=== PATIENT | male | born 1940 | race American Indian/Alaskan Native ===

== ENCOUNTER 2018-07-15 11:59 | Emergency (ER) | payer MEDICARE ==
--- NOTE | 2018-07-15 12:33 | Emergency Department Report ---
HPI - General Time Seen by Provider: 07/15/18 12:22 - [facility] HPI: Room 24 The patient is 78-year-old male presenting with chief complaint of fall from bed. The patient has a history of dementia who was sent from an assisted living facility for evaluation after a fall. Per EMS the patient was sitting on the edge of the bed initially and then the nurse found him on the floor. Patient has a hematoma to the back of the head. Patient complains of pain to the head neck back and right hip. It is uncertain if there was loss of consciousness Location: [See above] Duration: Just prior to arrival Quality: Pain Severity: Moderate Modifying factors: [see above] Context: [see above] Mode of transportation: [not driving] ED Past Medical Hx - Past Medical History Hx Hypertension: Yes Hx Diabetes: Yes Hx Dementia: Yes Additional medical history: Hypercholesterolemia - Surgical History Past Surgical History?: No - Family History Family history: no significant - Social History Smoking Status: Never Smoker Substance Use Type: None ED Review of Systems ROS: Stated complaint: FALL Other details as noted in HPI Constitutional: no symptoms reported Eyes: denies: eye pain ENT: denies: throat pain Respiratory: no symptoms reported Cardiovascular: denies: chest pain Endocrine: no symptoms reported Gastrointestinal: denies: abdominal pain Genitourinary: denies: dysuria Musculoskeletal: back pain, myalgia Neurological: headache Physical Exam - Physical Exam Physical Exam: GENERAL: The patient is well-developed well-nourished male lying on stretcher with cervical collar in place not appear to be in acute distress. [] HEENT: Normocephalic. Scalp hematoma. Extraocular motions are intact. Patient has moist mucous membranes. NECK: Supple. Cervical collar in place. Mild discomfort to palpation of the axial cervical spine CHEST/LUNGS: Clear to auscultation. There is no respiratory distress noted. HEART/CARDIOVASCULAR: Regular. There is no tachycardia. There is no gallop rub or murmur. ABDOMEN: Abdomen is soft, nontender. Patient has normal bowel sounds. There is no abdominal distention. SKIN: There is no rash. There is no edema. There is no diaphoresis. NEURO: The patient is awake and alert but pleasantly demented. The patient is cooperative. The patient has no focal neurologic deficits. The patient has normal speech. Cranial nerves II through XII grossly intact, insurance account representative equal bilaterally. Moves all extremities MUSCULOSKELETAL: There is no deformity. There is no limitation range of motion. ED Medical Decision Making - Radiology Data Radiology results: report reviewed (right hip x-ray, CT head, CT cervical spine, thoracic spine x-ray), image reviewed (CT head, CT cervical spine, right hip x- ray, thoracic spine x-ray, lumbar spine x-ray) interpreted by me: Right hip x-ray-no acute fracture Thoracic spine x-ray-no acute fracture Lumbar spine x-ray-no acute fracture Findings [address] [address] XRay Report Signed Patient: JULITA ROBBINS MR#: [id number] : 1940 Acct:[id number] Age/Sex: 78 / M ADM Date: 07/15/18 Loc: ED Attending Dr: Ordering Physician: AIDA YAN MD Date of Service: 07/15/18 Procedure(s): XR hip 2-3V RT Accession Number(s): [id number] cc: AIDA YAN MD Fluoro Time In Minutes: RIGHT HIP RADIOGRAPHS INDICATION: Pain after fall. COMPARISON: None similar at this institution. FINDINGS: AP pelvic and frog-leg projection of the right hip demonstrate normal femoral head contours, well located within the acetabula. Few hip degenerative changes as acetabular spurring and subtle subchondral cysts may though be present. Intact remainder pelvic articulation. Moderate lower lumbar degenerative osteophytes. Possible osteopenia. Atherosclerotic vascular calcifications. Nonobstructive bowel gas pattern. CONCLUSION: No acute right hip radiographic abnormality with degenerative changes noted, as described. Thank you for the opportunity to participate in this patient's care. Transcribed By: RS Dictated By: MEAGAN NUGENT MD Electronically Authenticated By: MEAGAN NUGENT MD Signed Date/Time: 07/15/18 1343 DD/ 1340 TD/TT: 07/15/[address] [address] Cat Scan Report Signed Patient: JULITA ROBBINS MR#: [id number] : 1940 Acct:[id number] Age/Sex: 78 / M ADM Date: 07/15/18 Loc: ED Attending Dr: Ordering Physician: AIDA YAN MD Date of Service: 07/15/18 Procedure(s): CT cervical spine wo con Accession Number(s): [id number] cc: AIDA YAN MD CT CERVICAL SPINE WITHOUT CONTRAST INDICATION: Pain after fall. COMPARISON: None similar. FINDINGS: Noncontrast axial, sagittal and coronal CT reconstructions through the cervical spine demonstrate numerous radiopaque dental materials, creating streak artifact. Exam also limited due to motion. Chronic right maxillary sinus mucoperiosteal thickening partially imaged. Left external auditory canal debris may also be directly visualized. Left vertebral artery atherosclerotic calcifications. Assessment of the spinal canal compromised from C6 inferiorly due to shoulder soft tissue artifact. Intact craniocervical articulation however with intact dens, anterior and posterior arches of C1, prevertebral soft tissues and airway. Extensive multilevel bridging osteophytes noted, most prominent anteriorly and posteriorly at C2-C3. Diffuse, somewhat confluent/flowing osteophytes also noted, more so anteriorly as on sagittal image 121, possibly DISH or ankylosing spondylitis. Thyroid not well visualized. Lung apices not imaged. On the obtained axial images: C2-C3 demonstrates central to left paracentral prominent disc bulge/osteophyte complex with possible ventral hemicord flattening and effacement as on axial series 3, image 88, amongst others. Severe asymmetric left facet hypertrophy also noted. C3-C4 demonstrates mild diffuse disc bulge/osteophyte complex, greatest left paracentral, axial image 98. C4-C5 and C5-C6 demonstrate mild posterior osteophytosis. C6-C7 demonstrates moderate to severe bilateral facet hypertrophy, axial image 130. C7-T1 also demonstrates moderate to severe facet hypertrophic changes, left more than right as on axial image 136. CONCLUSION: 1. No definite acute cervical spine CT abnormality with extensive multilevel degenerative changes noted, possibly DISH or ankylosing spondylitis, amongst others, in an appropriate setting. Please correlate. 2. Various other findings, as above. Thank you for the opportunity to participate in this patient's care. Transcribed By: RS Dictated By: MEAGAN NUGENT MD Electronically Authenticated By: MEAGAN NUGENT MD Signed Date/Time: 07/15/18 1511 DD/ 1501 TD/TT: 07/15/18 1511 - Differential Diagnosis closed head injury, ICH, cervical fracture, cervical strain, hip fracture Critical care attestation.: If time is entered above; I have spent that time in minutes in the direct care of this critically ill patient, excluding procedure time. ED Disposition Clinical Impression: Closed head injury, Contusion of right hip Disposition: DC/TX-70 ANOTHER TYPE HLTHCARE Is pt being admited?: No Does the pt Need Aspirin: No Condition: Stable Additional Instructions: Return to the emergency department immediately should you develop worsening symptoms, fever, inability to tolerate food or liquid or any other concerns. Referrals: PRIMARY CAREMD [Primary Care Provider] - 3-5 Days Time of Disposition: 15:47
--- NOTE | 2018-07-15 13:46 | XRay Report ---
RIGHT HIP RADIOGRAPHS INDICATION: Pain after fall. COMPARISON: None similar at this institution. FINDINGS: AP pelvic and frog-leg projection of the right hip demonstrate normal femoral head contours, well located within the acetabula. Few hip degenerative changes as acetabular spurring and subtle subchondral cysts may though be present. Intact remainder pelvic articulation. Moderate lower lumbar degenerative osteophytes. Possible osteopenia. Atherosclerotic vascular calcifications. Nonobstructive bowel gas pattern. CONCLUSION: No acute right hip radiographic abnormality with degenerative changes noted, as described. Thank you for the opportunity to participate in this patient's care.
--- NOTE | 2018-07-15 13:53 | XRay Report ---
THORACIC SPINE RADIOGRAPHS INDICATION: Pain after fall. COMPARISON: None similar. FINDINGS: AP and crosstable lateral views demonstrate grossly preserved vertebral body stature, alignment and disc heights. DISH/anterior longitudinal ligament ossification not excluded. Prominent lumbar spine degenerative osteophytes also seen. Possible osteopenia. Clear imaged lungs. Normal heart size. Mild aortic knob calcifications. CONCLUSION: No acute thoracic spine radiographic abnormality with thoracolumbar degenerative changes - possible DISH or ankylosing spondylitis in an appropriate setting. Please correlate. Thank you for the opportunity to participate in this patient's care.
--- NOTE | 2018-07-15 14:20 | Cat Scan Report ---
CT HEAD WITHOUT CONTRAST INDICATION: Pain after fall. COMPARISON: None similar. FINDINGS: Noncontrast head CT demonstrates symmetric, age-appropriate ventricles and sulci. Extensive periventricular and white matter hypodense probable small vessel ischemic disease. Though difficult to accurately detect in this setting, no definite acute infarct, hemorrhage, mass effect or midline shift identified. No abnormal extra axial fluid collections. Grossly normal posterior fossa with preserved basilar cisterns. Left cataract surgery. Completely opacified right maxillary sinus with some density also extending into the right nasal passage with evidence of prior sinus surgery/antrectomy. Mild right ethmoid and bilateral frontal sinus mucosal thickening may also be noted. Clear remainder imaged paranasal sinuses and temporal bone/mastoid air cells. Extensive atherosclerotic ICA calcifications. Mild left vertebral artery calcifications as well. Left external auditory canal debris may be directly visualized. Normal calvarium. Mild parietal scalp soft tissue swelling/hematoma noted posteriorly about the midline as on axial image 44. Numerous radiopaque dental material. Cervical spondylosis. CONCLUSION: 1. No acute intracranial CT abnormality with mild posterior scalp swelling/hematoma incidentally noted, as described. 2. Age-appropriate atrophy with extensive microvascular changes. 3. Severe right maxillary sinus chronic mucoperiosteal thickening in this patient with prior sinus surgery. 4. Few other findings, including extensive atherosclerotic vascular calcifications. Thank you for the opportunity to participate in this patient's care.
--- NOTE | 2018-07-15 15:14 | Cat Scan Report ---
CT CERVICAL SPINE WITHOUT CONTRAST INDICATION: Pain after fall. COMPARISON: None similar. FINDINGS: Noncontrast axial, sagittal and coronal CT reconstructions through the cervical spine demonstrate numerous radiopaque dental materials, creating streak artifact. Exam also limited due to motion. Chronic right maxillary sinus mucoperiosteal thickening partially imaged. Left external auditory canal debris may also be directly visualized. Left vertebral artery atherosclerotic calcifications. Assessment of the spinal canal compromised from C6 inferiorly due to shoulder soft tissue artifact. Intact craniocervical articulation however with intact dens, anterior and posterior arches of C1, prevertebral soft tissues and airway. Extensive multilevel bridging osteophytes noted, most prominent anteriorly and posteriorly at C2-C3. Diffuse, somewhat confluent/flowing osteophytes also noted, more so anteriorly as on sagittal image 121, possibly DISH or ankylosing spondylitis. Thyroid not well visualized. Lung apices not imaged. On the obtained axial images: C2-C3 demonstrates central to left paracentral prominent disc bulge/osteophyte complex with possible ventral hemicord flattening and effacement as on axial series 3, image 88, amongst others. Severe asymmetric left facet hypertrophy also noted. C3-C4 demonstrates mild diffuse disc bulge/osteophyte complex, greatest left paracentral, axial image 98. C4-C5 and C5-C6 demonstrate mild posterior osteophytosis. C6-C7 demonstrates moderate to severe bilateral facet hypertrophy, axial image 130. C7-T1 also demonstrates moderate to severe facet hypertrophic changes, left more than right as on axial image 136. CONCLUSION: 1. No definite acute cervical spine CT abnormality with extensive multilevel degenerative changes noted, possibly DISH or ankylosing spondylitis, amongst others, in an appropriate setting. Please correlate. 2. Various other findings, as above. Thank you for the opportunity to participate in this patient's care.
--- NOTE | 2018-07-15 15:50 | XRay Report ---
LUMBAR SPINE RADIOGRAPHS INDICATION: Pain after fall. COMPARISON: None similar. FINDINGS: AP and crosstable lateral lumbar spine radiographs demonstrate diffuse degenerative osteophytes, most prominent inferiorly. Normal vertebral body stature and alignment. Possible osteopenia. Fairly preserved disc heights. Mild atherosclerotic aortoiliac calcifications. Intact SI joints. Nonobstructive bowel gas pattern. CONCLUSION: Lumbar spondylosis without acute radiographic abnormality, as described. Thank you for the opportunity to participate in this patient's care.
[2018-07-15 19:03] VITALS: BP 139/55
== END 2018-07-15 20:13 | disposition other institution (70) ==
LOC: ED 11:59
DX: S70.01XA Contusion of right hip, initial encounter (principal); S09.90XA Unspecified injury of head, initial encounter; I10 Essential (primary) hypertension; E11.9 Type 2 diabetes mellitus without complications; F03.90 Unspecified dementia, unspecified severity, without behavioral disturbance, psychotic disturbance, mood disturbance, and anxiety; E78.00 Pure hypercholesterolemia, unspecified; W06.XXXA Fall from bed, initial encounter; Y93.89 Activity, other specified; Y92.89 Other specified places as the place of occurrence of the external cause; Y99.8 Other external cause status
CPT/HCPCS: 70450; 72070; 72100; 72125; 99284